=== PATIENT | male | born 1965 | race African-American/Black ===

== ENCOUNTER 2016-11-29 19:29 | Emergency (ER) | payer OTHER ==
[2016-11-29 19:49] VITALS: TEMP 98.2; BMI 26.9
--- NOTE | 2016-11-29 20:17 | PDOC ---
History of Present Illness - General History Source: Patient Exam Limitations: No Limitations - History of Present Illness Initial Comments: 11/29/16 20:33 The patient is a 51 year old male with significant past medical history of hypertension who presents to the ED sent from clinic for surgical evaluation. Patient reports he has a long history of a R inguinal hernia. He reports increasing pain to the area. States he attempted to have a surgical evaluation in the past, but was unable to. Denies abdominal pain, nausea, vomiting, or diarrhea. States he is still able to eat. The patient denies fever, chills, cough, SOB, chest pain, and palpitations. Allergies: NKDA Social History: No alcohol, tobacco, or drug use reported. Past Surgical History: None reported PCP: Dr. Shaun Ricci <Anamika Norman - Last Filed: 11/29/16 20:33> - General History Source: Patient <[email or web address] rosen - Last Filed: 11/30/16 00:05> - General Chief Complaint: Pain, Acute Stated Complaint: HERNIA Time Seen by Provider: 11/29/16 20:17 Past History <Anamika Norman - Last Filed: 11/29/16 20:33> - Past Medical History HTN: Yes - Surgical History Abdominal Surgery: Yes (Umbilical) - Psycho/Social/Smoking Cessation Hx Suicidal Ideation: No Smoking History: Current every day smoker Number of Cigarettes Smoked Daily: 7 Information on smoking cessation initiated: No Hx Alcohol Use: No Drug/Substance Use Hx: No Substance Use Type: None <Arturo Ballesteros - Last Filed: 11/30/16 00:05> - Past Medical History Allergies/Adverse Reactions: Allergies Allergy/AdvReac Type Severity Reaction Status Date / Time No Known Allergies Allergy Verified 11/29/16 19:45 Home Medications: Ambulatory Orders Amlodipine Besylate 10 mg PO DAILY 11/29/16 Amoxicillin/Potassium Clav [Augmentin 875-125 Tablet] 1 each PO DAILY 11/29/16 Azilsartan Med/Chlorthalidone [Edarbyclor 40-25 mg Tablet] 1 each PO DAILY 11/29 Benazepril HCl [Lotensin] 40 mg PO DAILY 11/29/16 Hydrochlorothiazide 25 mg PO DAILY 11/29/16 Ibuprofen 600 mg PO DAILY 11/29/16 Ibuprofen 800 mg PO TID #30 tablet 11/30/16 Oxycodone HCl/Acetaminophen [Percocet 5-325 mg Tablet] 1 - 2 tab PO Q6H #20 tablet MDD 4 11/30/16 Review of Systems - Review of Systems Able to Perform ROS?: Yes Comments:: 11/29/16 20:33 CONSTITUTIONAL: Absent: fever, no chills, no fatigue EYES: Absent: visual changes ENT: Absent: ear pain, no sore throat CARDIOVASCULAR: Absent: chest pain, no palpitations RESPIRATORY: Absent: cough, no SOB GI: +R inguinal hernia and pain to the area Absent: abdominal pain, no nausea, no vomiting, no constipation, no diarrhea GENITOURINARY: Absent: dysuria, no frequency, no hematuria MUSCULOSKELETAL: Absent: back pain, no arthralgia, no myalgia SKIN: Absent: rash NEURO: Absent: headache <Anamika Norman - Last Filed: 11/29/16 20:33> *Physical Exam - Vital Signs Last Vital Signs Temp Pulse Resp BP Pulse Ox 98.2 F 79 19 149/122 98 11/29/16 19:46 11/29/16 19:46 11/29/16 19:46 11/29/16 19:46 11/29/16 19:46 - Physical Exam Comments: 11/29/16 20:33 GENERAL: Well-appearing, well-nourished. No apparent distress. HEENT: Normocephalic, atraumatic. PERRL, EOM intact. CARDIOVASCULAR: Normal S1, S2. Regular rate and rhythm. PULMONARY: Clear to auscultation bilaterally. ABDOMEN: Soft, non-distended, non-tender. No rebound or guarding. Right inguinal hernia, not reproducible, tender, no swelling, no erythema EXTREMITIES: Normal ROM in all four extremities. No gross deformities. SKIN: Warm, dry. No rash NEUROLOGICAL: No focal neurological deficits. <Anamika Norman - Last Filed: 11/29/16 20:33> - Vital Signs Last Vital Signs Temp Pulse Resp BP Pulse Ox 98.2 F 79 19 149/122 98 11/29/16 19:46 11/29/16 19:46 11/29/16 19:46 11/29/16 19:46 11/29/16 19:46 <Arturo Ballesteros - Last Filed: 11/30/16 00:05> ED Treatment Course - LABORATORY CBC & Chemistry Diagram: 11/29/16 20:33 11/29/16 20:33 <Arturo Ballesteros - Last Filed: 11/30/16 00:05> Medical Decision Making - Medical Decision Making 11/30/16 00:05 Dr. Ballesteros: The scribe's documentation has been prepared under my direction and personally reviewed by me in its entirery. I confirm that the note above accurately reflects all work, treatment, procedures, and medical decision making performed by me. <Arturo Ballesteros - Last Filed: 11/30/16 00:05> *DC/Admit/Observation/Transfer - Attestations Scribe Attestion: 11/29/16 20:34 Documentation prepared by Anamika Norman, acting as medical examiner for Arturo Ballesteros MD/DO. <Anamika Norman - Last Filed: 11/29/16 20:33> - Discharge Dispostion Admit: No <Arturo Ballesteros - Last Filed: 11/30/16 00:05> Diagnosis at time of Disposition: Right groin pain, Right groin hernia - Discharge Dispostion Disposition: HOME Condition at time of disposition: Stable - Prescriptions Prescriptions: Ibuprofen 800 mg PO TID #30 tablet Oxycodone HCl/Acetaminophen [Percocet 5-325 mg Tablet] 1 - 2 tab PO Q6H #20 tablet MDD 4 - Referrals Referrals: Shaun Ricci [Primary Care Provider] - Juan Keys MD [Staff Physician] - Roldan Cárdenas MD [Staff Physician] - Gilmar Kendrick MD [Staff Physician] - - Patient Instructions Printed Discharge Instructions: Groin Hernia -- Adult
[2016-11-29 20:48] LABS: BASOPHIL 1.1 % (0-2.0); MCHC 31.5 g/dl (32.0-35.9); MEAN CELL VOLUME 76.2 fl (80-96); MEAN PLT VOLUME 8.1 fl (7.5-11.1); NEUTROPHILS 55.2 % (42.8-82.8); PLATELET COUNT 242 K/MM3 (134-434); RDW 15.4 % (11.9-15.9)
[2016-11-29 21:05] LABS: INR 1.04 (0.82-1.09); PROTHROMBIN TIME (PATIENT) 11.5 SEC (9.98-11.88)
[2016-11-29 21:11] LABS: ANION GAP 8 (8-16); BILIRUBIN,TOTAL 0.5 mg/dL (0.2-1.0); CO2 28 mmol/L (21-32); COCKROFT - GAULT 84.49; CREATININE 1.2 mg/dL (0.7-1.3); GLUCOSE,RANDOM 116 mg/dL (74-106); SGOT/AST 31 U/L (15-37); SGPT/ALT 32 U/L (12-78); TOT PROT 7.5 g/dl (6.4-8.2)
[2016-11-29 21:12] LABS: ALK PHOS 101 U/L (45-117)
[2016-11-29 23:24] VITALS: BP 159/91; PULSE 75
[2016-11-30] MEDS ORDERED: OXYCODONE/APAP 5/325MG COMBO TABLET PO ONE (00:01)
[2016-11-30] MEDS ORDERED: OXYCODONE/APAP 5/325MG COMBO TABLET ONE (00:14)
== END 2016-11-30 00:15 | disposition home or self-care (01) ==
LOC: JER 19:29
DX: K46.9 Unspecified abdominal hernia without obstruction or gangrene (principal); I10 Essential (primary) hypertension; F17.210 Nicotine dependence, cigarettes, uncomplicated
CPT/HCPCS: 36415; 74176-TC; 80053; 85025; 85610; 99283-25